=== PATIENT | male | born 1995 | race Caucasian/White ===

== ENCOUNTER → 2017-09-20 | Outpatient (CLI) | payer OTHER ==
[~2017-09-20] MED LIST: ALPR.25 PO; Ambien10 MG PO; HYDACE5325 PO; INDO50 PO; Norco 5-325 Ta1 EACH PO; Robaxin500 MG PO; TRAM50 PO; Zofran4 MG PO
== END ==
LOC: LAB SHORT 18:50
DX: R35.0 Frequency of micturition (principal)
CPT/HCPCS: 87086

== ENCOUNTER → 2017-10-13 | Outpatient (CLI) | payer OTHER ==
[2017-10-13 18:36] LABS: Specimen Source URINE
[2017-10-14 14:23] LABS: Source Urine
== END ==
LOC: LAB EV 16:00
PROVIDERS: Nurse Practitioner Family
DX: R30.0 Dysuria (principal)
CPT/HCPCS: 87491; 87591

== ENCOUNTER 2018-08-22 00:30 | Emergency (ER) | payer OTHER ==
[~2018-08-22] VITALS: Ht 172.7 cm; Wt 90.7 kg
[~2018-08-22 00:30] MED LIST changes: -Norco 5-325 Ta1 EACH PO; -Zofran4 MG PO
[2018-08-22] MEDS ORDERED: Zofran4 MG PO (02:31)
[2018-08-22] MEDS ORDERED: Norco 5-325 Ta1 EACH PO (02:31)
[2018-08-22 02:47] LABS: Source, Urine Clean Catch
[2018-08-22 02:49] LABS: Bilirubin, Urine Neg (Neg); Blood, Urine Neg (Neg); Glucose Qualitative, Urine Neg (Neg); Ketones, Urine 1+ (Neg); Leukocyte Esterase, Urine Neg (Neg); Nitrite, Urine Neg (Neg); Protein, Urine 2+ (Neg); Specific Gravity, Urine 1.025 (1.003-1.022); Urobilinogen, Urine 1+ (Normal)
[2018-08-22 02:54] LABS: Appearance, Urine Clear (Clear); Color, Urine Yellow (P-Yellow)
[2018-08-22 02:55] LABS: Bacteria Many /hpf; Hyaline Casts 0-2 /lpf (0-2); Mucus Heavy (0-Heavy); Squamous Epithelial Cells Not Seen /hpf (Few); White Blood Cells, Urine 0-2 /hpf (0-5)
== END 2018-08-22 03:14 | disposition home or self-care (01) ==
LOC: ER 00:30
PROVIDERS: Emergency Medicine
DX: N20.0 Calculus of kidney (principal); F41.9 Anxiety disorder, unspecified
CPT/HCPCS: 74176; 81001; 87077; 87086; 87186; 96372; 99284-25; J1885

== ENCOUNTER 2019-01-05 12:51 | Emergency (ER) | payer OTHER ==
[~2019-01-05] VITALS: Ht 172.7 cm; Wt 86.2 kg
[~2019-01-05 12:51] MED LIST changes: +Norco 5-325 Ta1 EACH PO; +Zofran4 MG PO
[2019-01-05] MEDS ORDERED: Vistaril25 MG PO (14:30)
== END 2019-01-05 15:03 | disposition home or self-care (01) ==
LOC: ER 12:51
DX: R55 Syncope and collapse (principal); F41.9 Anxiety disorder, unspecified; J20.9 Acute bronchitis, unspecified; G47.00 Insomnia, unspecified
CPT/HCPCS: 93005; 93010; 99284-25

== ENCOUNTER → 2019-11-19 | Outpatient (CLI) | payer OTHER ==
[~2019-11-19] MED LIST changes: +Vistaril25 MG PO
[2019-11-22 01:10] LABS: CHLAMYDIA TRACHOMATIS, NAA Negative (Negative); NEISSERIA GONORRHOEAE, NAA Negative (Negative)
== END | disposition home or self-care (01) ==
LOC: LAB SHORT 19:36 → LAB 19:36
PROVIDERS: Nurse Practitioner
DX: R30.0 Dysuria (principal)
CPT/HCPCS: 87491; 87591

== ENCOUNTER → 2021-06-05 | Outpatient (CLI) | payer OTHER | END | disposition home or self-care (01) | LOC: LAB SHORT 16:30 → LAB 16:30 | DX: L03.115 Cellulitis of right lower limb (principal) | CPT/HCPCS: 87070; 87205 ==

== ENCOUNTER 2021-09-02 22:59 | Emergency (ER) | payer OTHER ==
[~2021-09-02] VITALS: Ht 172.7 cm; Wt 99.8 kg
[2021-09-03] MEDS ORDERED: Percocet 5-3251 EACH PO (04:02)
[2021-09-03] MEDS ORDERED: IBUP800 PO (04:02)
== END 2021-09-03 04:12 | disposition home or self-care (01) ==
LOC: ER 22:59
DX: S62.656A Nondisplaced fracture of middle phalanx of right little finger, initial encounter for closed fracture (principal); S61.411A Laceration without foreign body of right hand, initial encounter; X58.XXXA Exposure to other specified factors, initial encounter
CPT/HCPCS: 73130; 90714; A9270

== ENCOUNTER 2022-09-08 11:08 | Emergency (ER) | payer OTHER ==
[~2022-09-08] VITALS: Ht 172.7 cm; Wt 96.6 kg
[~2022-09-08 11:08] MED LIST changes: +IBUP800 PO; +Percocet 5-3251 EACH PO
[2022-09-08] MEDS ORDERED: AMOCLA875 PO ×2 (11:24→11:25)
[2022-09-08] MEDS ORDERED: Ultram50 MG PO ×2 (11:24→11:25)
== END 2022-09-08 11:26 | disposition home or self-care (01) ==
LOC: ER 11:08
DX: K04.7 Periapical abscess without sinus (principal)
CPT/HCPCS: 99282

== ENCOUNTER 2024-08-09 14:14 | Emergency (ER) | payer OTHER ==
[~2024-08-09] VITALS: Ht 172.7 cm; Wt 97.5 kg
[~2024-08-09 14:14] MED LIST changes: +AMOCLA875 PO; +Ultram50 MG PO
[2024-08-09 14:19] VITALS: BP 133/74
== END 2024-08-09 16:06 | disposition home or self-care (01) ==
LOC: ER 14:14
DX: S61.211A Laceration without foreign body of left index finger without damage to nail, initial encounter (principal); W26.9XXA Contact with unspecified sharp object(s), initial encounter
CPT/HCPCS: 12001; 99282-25

== ENCOUNTER 2025-09-09 19:31 | Emergency (ER) | payer OTHER ==
[~2025-09-09] VITALS: Ht 170.2 cm; Wt 83.9 kg
[2025-09-09] MEDS ORDERED: Ondansetron 4 MG SoluTab SL ONE (21:45)
[2025-09-09] MEDS ORDERED: RX Prepack 2 Tabs Ondansetron ODT 4MG UD ONE (23:15)
[2025-09-09 23:19] VITALS: BP 152/92
== END 2025-09-09 23:22 | disposition home or self-care (01) ==
LOC: ER 19:31
DX: R51.9 Headache, unspecified (principal); G93.5 Compression of brain; V89.2XXA Person injured in unspecified motor-vehicle accident, traffic, initial encounter
CPT/HCPCS: 70450; 99284-25; A9270